=== PATIENT | male | born 1950 | race Caucasian/White ===

== ENCOUNTER 2018-02-21 06:47 | Inpatient (IN) ==
[~2018-02-21 06:47] MED LIST: ACETAMINOPHEN 500 MG TABLET PO ONE; DEXAMETHASONE 4 MG/ML INJECTION IVP ONE; FAMOTIDINE PB 20 MG/50 ML BAG IV ONE; LIDOCAINE 1% (10mg/ml) 2mL INJ PF SDV ID ONE; MELOXICAM 15 MG TABLET PO ONE; METOCLOPRAMIDE 10mg/2ml INJECTION IVP ONE; ONDANSETRON 4 MG/2 ML INJECTION IVP ONE; TRANEXAMIC ACID 1,000 MG in NS 100 ML IV ONE
[2018-02-21] MEDS ORDERED: VANCOMYCIN 1,000 MG INJECTION ONE (06:55)
[2018-02-21] MEDS ORDERED: TRANEXAMIC ACID 1,000 MG in NS 100 ML IV ONE (07:00)
[2018-02-21] MEDS: LR 1,000 ML IV SCH ×2 (07:20→10:19)
[2018-02-21] MEDS: NOZIN NASAL SWAB NAS SCH ×5 (07:30→21:38)
--- NOTE | 2018-02-21 07:47 | Anesthesia Preoperative Report ---
Anesthesia Preoperative Record - Date and Time Date: 02/21/18 Preoperative Diagnosis: LT FARIHA M16.12 Proposed Procedure: Left FARIHA NPO Since Date: 02/20/18 NPO Since Time: 18:30 Allergies/Adverse Reactions: Allergies Allergy/AdvReac Type Severity Reaction Status Date / Time No Known Allergies Allergy Verified 02/21/18 07:19 - Vital Signs Vital Signs: Temperature 98.3 F 02/21/18 07:03 Pulse Rate 56 L 02/21/18 07:40 Respiratory Rate 16 02/21/18 07:03 Blood Pressure 178/88 H 02/21/18 07:40 Pulse Oximetry 96 02/21/18 07:03 Height and Weight: Height 5 ft 10 in Weight 88.1 kg Body Mass Index 27.8 - Medications Inpatient Medications: Current Medications Cefazolin Sodium (Kefzol 1 Gm Vial) 2 g IVP PREOP ONE Stop: 02/21/18 08:31 Epinephrine HCl 0.25 mg/Bupivacaine HCl 30 ml/Ketorolac Tromethamine 60 mg/ Sodium Chloride 62.25 mls @ 1 mls/hr OPSITE INTRAOP ONE; Protocol Stop: 02/23/18 22:14 Lactated Ringer's (Lactated Ringers) 1,000 mls @ 50 mls/hr IV .Q20H JORGE Last Admin: 02/21/18 07:20 Dose: 50 mls/hr Isopropyl Alcohol (Nozin Nasal Swab) 1 each ELLIE Q1M JORGE Stop: 02/21/18 12:18 Last Admin: 02/21/18 07:38 Dose: 1 each Sodium Chloride (Iv Flush) 10 - 80 ml IV PRN PRN PRN Reason: Flushing Home Medications: Home Medications Medication Instructions Recorded Confirmed Type Mobic (Meloxicam) 15 mg tablet 15 mg PO DAILY 12/12/17 02/21/18 History Tenormin (atenolol) 50 mg tablet 50 mg PO DAILY 12/12/17 02/21/18 History Zocor (simvastatin) 20 mg tablet 20 mg PO DAILY 12/12/17 02/21/18 History Lisinopril [Prinivil] 40 mg PO HS 02/13/18 02/21/18 History Is Patient on Beta Amalia?: Yes Beta Amalia Last Dose Date/Time: 02/21/18 6am - Medical History Respiratory: DENIES: Asthma, Bronchitis, Chronic Obstructive Pulmonary Disease (COPD), Dyspnea, Orthopnea, Pulmonary Embolism, Pneumonia, Upper Respiratory Infection, Pulmonary Edema, Sleep Apnea, Tuberculosis, Other Cardiovascular: Reports: Hypertension, High Cholesterol DENIES: Abnormal EKG, Angina, Arrhythmia, Congestive Heart Failure, Coronary Artery Disease, Heart Murmur, Hypotension, Myocardial Infarction, Rheumatic Fever, Valvular Heart Disease, Other Gastrointestional: DENIES: Obstructive Bowel, Hepatitis, Cirrhosis, Gastroesophageal Reflux Disease, Gastrointestinal Bleeding, Hiatal Hernia, Ulcer, Morbid Obesity, Other Neuro/Musculoskeletal: Denies: Back Problems, Cerebrovascular Accident, Depression, Headaches, Loss of Consciousness, Muscle Weakness, Neuromuscular Disorder, Paralysis, Paresthesia, Syncope, Seizures, Other Renal/Endocrine: DENIES: Diabetes Mellitus Type 1, Diabetes Mellitus Type 2, Renal Failure, Dialysis, Thyroid Disease, Weight Loss, Weight Gain, Other Other History: Reports: Cancer (SKIN CA ON EAR) DENIES: Anesthesia Reactions, Now, Blood Transfusions, Chemotherapy , Hemophilia, Malignant Hyperthermia, Sickle Cell Disease, Other - Surgical History GI Surgery/Treatments: Reports: Colonoscopy Surgery/Treatment: DENIES: Dialysis Musculoskeletal Surgery/Tx: Reports: Knee Arthroscopy (right), Other (BACK SURGERY) Anesthesia Reactions: None Hx Family Anesthesia Reaction: No History of Motion Sickness: No - Social History Smoking Status: Former smoker Hx Chewing Tobacco Use: No Second Hand Exposure: No Substance Use Type: does not use Alcohol Intake: current Alcohol Intake Frequency: a few times a week - Pertinent Findings Laboratory: CBC and BMP 02/21/18 07:01 BMP 02/21/18 07:01 Sodium 145 Potassium 4.4 Chloride 109 H Carbon Dioxide 26 BUN 21.0 H Creatinine 1.0 Glucose 104 Calcium 9.0 EKG: Sinus Bradycardia - Physical Exam Respiratory Exam: Present: lungs clear, bilateral breath sounds equal Cardiovascular Exam: Present: regular rate and rhythm, no murmur - Airway Assessment TMD: 3 Fingerbreadths Neck Extension: good Overall Assessment: no airway concerns - ASA ASA Score: 2 - Plan Anesthesia: Neuroaxial Regional/Trunk Block: Spinal - Discussion Discussion: Discussed risks/options/alternatives of anesthesia and questions answered. Patient consents. Nursing pain assessment noted. Present for Discussion: spouse Attestation Statement: Prior to the delivery of any anesthetic medication, I examined the patient, developed the plan, obtained the patient's consent and discussed the risk and benefits of the procedure with the patient/guardian. - Additional Information Seen by Anesthesia: Yes
[2018-02-21] MEDS ORDERED: EPINEPHrine PF 0.25 MG, BUPIVACAINE 0.25% PF 30 ML, KETOROLAC INJ 60 MG in NS 30 ML OPSITE ONE (08:00)
[2018-02-21] MEDS ORDERED: ANESTHESIA MIXTURE 50 ML IV ONE (08:00)
[2018-02-21] MEDS ORDERED: CEFAZOLIN 1 G INJECTION IVP ONE (08:30)
[2018-02-21] MEDS ORDERED: MIDAZOLAM 2mg/2ml INJECTION ONE (08:34)
[2018-02-21] MEDS ORDERED: FentaNYL 100 MCG/2 ML INJECTION ONE (08:36)
[2018-02-21] MEDS ORDERED: BUPIVACAINE 0.75%/DEXTROSE 8.5% SPINAL 2 ML AMPULE IJ ONE (08:36)
[2018-02-21] MEDS ORDERED: LIDOCAINE 1% (10mg/ml) 30ml SDV INJ ONE (08:36)
[2018-02-21] MEDS ORDERED: VANCOMYCIN 1,000 MG INJECTION IAR ONE (09:07)
[2018-02-21] MEDS ORDERED: PROPOFOL 500 MG/50 ML VIAL ONE (09:48)
--- NOTE | 2018-02-21 11:24 | Anesthesia Postoperative Note ---
- Date and Time Date: 02/21/18 Time: 11:23 - Status Patient Participated in Evaluation: Patient Participated in Person Vital Signs: Temperature 96.9 F 02/21/18 11:17 Pulse Rate 53 L 02/21/18 11:15 Respiratory Rate 16 02/21/18 11:15 Blood Pressure 135/74 02/21/18 11:15 Pulse Oximetry 95 02/21/18 11:15 Respiratory Function: Airway Patent, Regular Respirations Cardiovascular Function: Regular Pulse EKG: Sinus Bradycardia Mental Status: Alert and Oriented Pain Intensity: 0 Hydration: IV Infusing Nausea/Vomiting: None Complications During Recover: None Apparent - Follow-Up Instructions Instructions: Per Surgeon
[2018-02-21] MEDS ORDERED: DiphenhydrAMINE 50 MG/ML INJECTION IVP PRN (11:28)
[2018-02-21] MEDS ORDERED: DiphenhydrAMINE 25 MG CAPSULE PO PRN (11:28)
[2018-02-21] MEDS ORDERED: ONDANSETRON 4 MG/2 ML INJECTION IVP PRN (11:28)
[2018-02-21] MEDS ORDERED: LORazepam 1 MG TABLET PO PRN (11:28)
[2018-02-21] MEDS ORDERED: NOZIN NASAL SWAB NAS ONE (11:28)
[2018-02-21] MEDS ORDERED: DEXAMETHASONE 20 MG/5 ML INJECTION IVP ONE (11:28)
[2018-02-21 11:32] VITALS: BMI 28.5
[2018-02-21] MEDS ORDERED: SALINE FLUSH 10ml SYRINGE IV PRN (12:02)
--- NOTE | 2018-02-21 12:07 | XRay Report ---
Indication: postoperative image PROCEDURE: XR pelvis w/ 1 view LT hip: Encounter: Initial Comparison: None Findings: Postoperative changes of left total hip replacement are seen. There is expected postoperative subcutaneous gas. No evidence of hardware failure or acute fracture. No retained radiopaque surgical instruments or sponges seen. Impression: New left total hip prosthesis without evidence of immediate complication. .
[2018-02-21] MEDS: NS 1,000 ML IV SCH (12:34)
[2018-02-21] MEDS: ACETAMINOPHEN 325 MG TABLET PO SCH ×3 (14:14→20:03)
[2018-02-21] MEDS: CEFAZOLIN 2 G in NS 100 ML IV SCH ×2 (15:32→23:41)
[2018-02-21] MEDS: LISINOPRIL 40 MG TABLET PO SCH ×2 (16:03→21:33)
[2018-02-21] MEDS ORDERED: DEXAMETHASONE 4 MG/ML INJECTION ONE (16:13)
[2018-02-21] MEDS: ASPIRIN *EC* 81 MG TABLET PO SCH (20:04)
[2018-02-21] MEDS: Oxycodone *IR* 5 MG TABLET PO PRN ×2 (20:04→23:44)
[2018-02-21] MEDS: DOCUSATE SODIUM 100 MG CAPSULE PO SCH (20:04)
[2018-02-21] MEDS ORDERED: SIMVASTATIN 20 MG TABLET PO SCH (21:00)
[2018-02-21] MEDS ORDERED: SENNOSIDES 8.6 MG TABLET PO SCH (21:00)
[2018-02-22] MEDS: NS 1,000 ML IV SCH (02:33)
[2018-02-22] MEDS: NOZIN NASAL SWAB NAS SCH ×2 (06:38→14:23)
[2018-02-22] MEDS ORDERED: MELOXICAM 15 MG TABLET PO SCH (08:00)
[2018-02-22] MEDS: ACETAMINOPHEN 325 MG TABLET PO SCH ×2 (08:44→12:27)
[2018-02-22] MEDS: ASPIRIN *EC* 81 MG TABLET PO SCH (08:45)
[2018-02-22] MEDS: DOCUSATE SODIUM 100 MG CAPSULE PO SCH (08:45)
[2018-02-22] MEDS: Oxycodone *IR* 5 MG TABLET PO PRN ×2 (08:47→12:27)
[2018-02-22] MEDS ORDERED: POLYETHYL GLYCOL 3350 17gm PACKET PO SCH (09:00)
[2018-02-22] MEDS ORDERED: ATENOLOL 50 MG TABLET PO SCH (09:00)
--- NOTE | 2018-02-22 09:13 | Orthopedic Progress Note ---
Date: Date: 02/22/18 Time: 910 Subjective/Severity of Illness: Cody is doing well. He has only been up in his room but has felt comfortable with that. PT is about to work with him. No CP, cough or SOA. No GI complaints. Orthopedic Exam Vital signs: Temperature 97.9 F 02/22/18 08:00 Pulse Rate 71 02/22/18 08:00 Respiratory Rate 16 02/22/18 08:00 Blood Pressure 177/85 H 02/22/18 08:00 Pulse Oximetry 92 02/22/18 08:00 - Constitutional General Appearance: Present: alert, cooperative, no acute distress - Respiratory Exam Present: non-labored - Extremities Exam Present: pulses intact. Absent: calf tenderness - Dressing Dressing: dry, intact, no drainage - Neurological Exam Present: no deficits - Psychiatric Exam Present: alert, normal affect - Labs Result Diagrams: 02/22/18 04:25 02/22/18 04:25 Abnormal lab results 02/22/18 Range/Units 04:25 Chloride 109 H (98-107) MEQ/L Glucose 132 H (75-110) MG/DL Calcium 8.1 L D (8.4-10.2) MG/DL H & H 02/22/18 Range/Units 04:25 Hgb 13.9 (13.5-17.5) GM/DL Orthopedic Assessment and Plan (1) Primary osteoarthritis of left hip Status: Acute - Anticoagulation Therapy Anticoagulation: ASA 81 mg PO BID x6 weeks Hospital Course Summary Disclaimer: The visit summary below is not to be considered part of the above Progress Note.
[2018-02-22] MEDS ORDERED: SENNOSIDES 8.6 MG TABLET PO PRN (10:45)
[2018-02-22 10:58] VITALS: O2SAT 94
[2018-02-22 11:42] VITALS: BP 155/86; PULSE 63; TEMP 97.5
[2018-02-22 12:29] VITALS: RESP 16
--- NOTE | 2018-02-22 13:57 | Discharge Summary ---
Letter to PCP Cover Letter: This is a short letter to update you on your patient's status and to ask for your assistance in managing their postoperative medical needs. Cody Duran underwent a left total hip arthroplasty by Dr. Key on . Aspirin therapy was initiated for DVT prophylaxis. Aspirin 81mg should be given BID for six weeks postoperatively. Details for their hospitalization can be found in the discharge summary attached. The patient is scheduled to see you one week after surgery for a post-operative check. I hope you find the discharge summary informative and helpful as you resume care of your patient after their surgery. If our office can be of any assistance, please feel free to contact us any time. Orthopedic Discharge Info Date of admission: 02/21/18 06:47 Primary care physician: Wally Santos MD Attending Physician: Leonard Key MD Consults: 02/21/18 06:54 Consult to Anesthesiology [CONS] Routine Reason For Exam: Preoperative Assessment 02/21/18 11:28 Case Management Consult [CONS] Routine Reason For Exam: Discharge Planning DME-Walker [CONS] Routine Height: 5 ft 10 in Weight: 88.1 kg Total Joint Outpatient Therapy [CONS] Routine Comment: Remove dressing in 2 weeks - Discharge Diagnosis (1) Primary osteoarthritis of left hip Status: Acute - Laboratory Result Diagrams: 02/22/18 04:25 02/22/18 04:25 Laboratory: Abnormal lab results 02/22/18 Range/Units 04:25 Chloride 109 H (98-107) MEQ/L Glucose 132 H (75-110) MG/DL Calcium 8.1 L D (8.4-10.2) MG/DL H & H 02/22/18 Range/Units 04:25 Hgb 13.9 (13.5-17.5) GM/DL Orthopedic Discharge HPI - HPI Comments This patient was admitted for elective surgical tx of end stage degenerative joint disease that failed to respond to conservative treatment. Further details of this is found in the admission H&P. Orthopedic Hospital Course Hospital course: 02/22/18 13:53 After appropriate preoperative clearance and signing of operative consent, the patient was given IV antibiotics, according to orthopedic protocol. The patient was taken to the operating room and underwent elective left total hip arthroplasty on 02/21/18. Following surgery, antibiotics were discontinued less than 24 hours according to joint protocol. Aspirin was initiated and SCDs added for DVT prevention. The dressing was clean, dry, and intact. Pain control was obtained via multimodal approach. Bowel motivation addressed with scheduled and PRN medications. Early mobilization was initiated through PT services. Discharge arrangements made by a collaborative effort between the patient and Case Management. He should remain on Aspirin 81mg BID x 6 weeks for DVT coverage. His hgb was 13.9 at discharge. BMP was normal. Follow-up is scheduled in 2-3 weeks. Discharge instructions given by orthopedic providers and nursing staff at discharge. Discharge condition was good. Care extended to > 2 midnight stays?: No Discharge Plan - Med Rec/Dispo Referrals/Follow Up: Wally Santos MD [Primary Care Provider] - 02/28/18 1:30 pm Yoel Kline PA [Physician Drum Drier] - 03/13/18 2:15 pm Karina Instructions: [facility] Postop Instructions Additional Instructions: [facility] OUTPATIENT PHYSICAL THERAPY EVAL ON 02/25/2018 AT 1:00PM FOR PHYSICAL THERAPY EVAL. PHONE [phone] Prescriptions: New Acetaminophen [Tylenol] 650 mg PO QID tablet Aspirin *EC* [Ecotrin] 81 mg PO BID tablet Docusate Sodium [Colace] 100 mg PO BID capsule Oxycodone *IR* [Roxicodone *Ir*] 5 - 15 mg PO Q3H PRN #50 tab PRN Reason: Breakthrough Pain PEG 3350 17gm PACKET [Miralax] 17 gm PO DAILY packet Milk of Magnesia [Mom] 30 ml PO DAILY udc Continue Lisinopril [Prinivil] 40 mg PO HS Tenormin (atenolol) 50 mg tablet 50 mg PO DAILY Mobic (Meloxicam) 15 mg tablet 15 mg PO DAILY Zocor (simvastatin) 20 mg tablet 20 mg PO DAILY - Disposition 01 Discharged Home, Self-Care - Dismissal Complete Discharge Instructions are:: Incomplete
[2018-02-23] MEDS ORDERED: BISACODYL 10 MG SUPPOSITORY RECTALLY SCH (20:00)
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
== END 2018-02-22 15:00 | disposition home or self-care (01) | DRG 470 ==
LOC: NMC.PERIOP 06:47 → SRG 11:17
PROVIDERS: ADMIT Orthopaedic Surgery; ATTEND Orthopaedic Surgery